=== PATIENT | female | born 1965 | race Caucasian/White ===

== ENCOUNTER 2016-07-23 17:43 | Emergency (ER) | payer OTHER ==
[~2016-07-23] VITALS: Ht 157.5 cm; Wt 59.0 kg
[2016-07-23 17:50] VITALS: BP 125/89
[2016-07-23] MEDS ORDERED: KETOROLAC TROMETHAMINE INJ 60 MG/2 ML VIAL IM ONE ×2 (18:00)
[2016-07-23] MEDS ORDERED: ONDANSETRON 4 MG TAB.RAPDIS SL ONE (18:00)
[2016-07-23] MEDS ORDERED: ONDANSETRON 4 MG TAB.RAPDIS ONE (18:01)
== END 2016-07-23 20:05 | disposition home or self-care (01) ==
LOC: ER 17:47
DX: S29.011A Strain of muscle and tendon of front wall of thorax, initial encounter (principal); Z59.0 Homelessness; F10.129 Alcohol abuse with intoxication, unspecified; X58.XXXA Exposure to other specified factors, initial encounter; Y93.89 Activity, other specified; Y92.89 Other specified places as the place of occurrence of the external cause; Y99.8 Other external cause status
CPT/HCPCS: 71100; 73030; 96372; 99284; A4606; J1885; Q0162; Z7610

== ENCOUNTER 2020-02-25 02:15 | Emergency (ER) | payer MEDICARE, OTHER ==
[~2020-02-25] VITALS: Ht 157.5 cm; Wt 63.5 kg
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
--- NOTE | 2020-02-25 02:51 | NUR ---
TENNIS BALL COVER CEMENTER AT BEDSIDE. URINE SENT TO LAB.
[2020-02-25 03:24] LABS: ALBUMIN 3.3 g/dL (3.4-5.0); BILIRUBIN,DIRECT 0.1 mg/dL (0.0-0.2); BILIRUBIN,TOTAL 0.1 mg/dL (0.2-1.0); CALCIUM, SERUM 8.6 mg/dL (8.5-10.1); POTASSIUM 3.2 mmol/L (3.5-5.1); TOTAL PROTEIN, SERUM 6.8 g/dL (6.4-8.2)
[2020-02-25 03:25] LABS: BASOPHILS % (AUTO) 0.5 % (0.0-2.0); EOSINOPHILS % (AUTO) 2.7 % (0.0-6.0); HEMATOCRIT 37 % (33-45); HEMOGLOBIN 12.4 g/dL (11.5-14.8); LYMPHOCYTES # (AUTO) 4.3 /CMM (0.8-4.8); LYMPHOCYTES % (AUTO) 55.8 % (20.0-44.0); MEAN CORPUSCULAR HGB CONC 33 g/dl (31.0-36.0); MEAN CORPUSCULAR VOLUME 96 fL (82-100); MONOCYTES # (AUTO) 0.5 /CMM (0.1-1.30); MONOCYTES % (AUTO) 7.1 % (2.0-12.0); NEUTROPHILS # (AUTO) 2.6 /CMM (1.8-8.9); NEUTROPHILS % (AUTO) 33.9 % (43.0-81.0); PLATELET COUNT (AUTO) 351 /CMM (150-450); RED BLOOD CELL COUNT(AUTO) 3.87 MIL/uL (4.0-5.2); WHITE BLOOD COUNT (AUTO) 7.7 K/uL (4.3-11.0)
[2020-02-25 03:34] LABS: APPEARANCE,URINE CLEAR (CLEAR); BILIRUBIN,URINE NEGATIVE (NEGATIVE); BLOOD, URINE SMALL Ery/uL (NEGATIVE); COLOR,URINE YELLOW (YELLOW); KETONES,URINE NEGATIVE (NEGATIVE); LEUKOCYTE ESTERASE ,URINE NEGATIVE (NEGATIVE); NITRITE, URINE NEGATIVE (NEGATIVE); PROTEIN,URINE NEGATIVE (NEGATIVE); UGLUCOSE NEGATIVE (NEGATIVE); UROBILINOGEN,URINE 0.2 EU/dL (0.2)
--- NOTE | 2020-02-25 03:46 | NUR ---
PT PROVIDED WITH FOOD.
--- NOTE | 2020-02-25 04:01 | NUR ---
Patient is resting comfortably in bed. Easily aroused. VSS.
--- NOTE | 2020-02-25 05:50 | NUR ---
CLINICAL FAXED TO [facility] FOR VOLUNTARY PSYCH ADMISSION.
--- NOTE | 2020-02-25 06:23 | NUR ---
CLINICAL UNDER REVIEW PER LEELA AT [facility] [place] INTAKE.
--- NOTE | 2020-02-25 07:01 | NUR ---
PT ACCEPTED AT [facility] RYAN CRUZ ACCEPTING MD DOBSON PHONE NUMBER FOR REPORT CJ INTAKE REQUESTING TO CALL FOR REPORT AFTER 0900AM
[2020-02-25 07:05] VITALS: BP 105/71
--- NOTE | 2020-02-25 08:18 | NUR ---
Per [facility] ambulance eta for transport to [facility] is 0012
--- NOTE | 2020-02-25 10:30 | NUR ---
REPORT GIVEN TO SENIOR IT ASSISTANT. PATIENT A/OX4, BREAHTING EVEN AND UNLABORED, IN STABLE CONDITION. SEEN AND REASSED BY DR. ZUÑIGA. PATIENT TRANSFERRED TO [facility].
== END 2020-02-25 11:15 ==
LOC: ER 02:22
DX: R45.851 Suicidal ideations (principal); R45.1 Restlessness and agitation; Z90.89 Acquired absence of other organs; Z98.890 Other specified postprocedural states
CPT/HCPCS: 36415; 80048; 80076; 80305; 80307; 80329; 81001; 85025; 99285; G0480; 81000-TC

== ENCOUNTER 2020-04-02 09:29 | Inpatient (IN) | payer MEDICARE, OTHER ==
[~2020-04-02] VITALS: Ht 157.5 cm; Wt 59.0 kg
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
[2020-04-02] MEDS ORDERED: ONDANSETRON HCL/PF 4 MG/2 ML VIAL ONE (09:58)
[2020-04-02] MEDS ORDERED: ONDANSETRON HCL/PF 4 MG/2 ML VIAL IV ONE (10:00)
[2020-04-02] MEDS ORDERED: IV NS 0.9% 1,000 ML BAG IV ONE (10:00)
[2020-04-02 10:15] LABS: BASOPHILS # (AUTO) 0.1 /CMM (0.0-0.2); BASOPHILS % (AUTO) 0.4 % (0.0-2.0); EOSINOPHILS % (AUTO) 0.1 % (0.0-6.0); HEMATOCRIT 42 % (33-45); HEMOGLOBIN 13.8 g/dL (11.5-14.8); LYMPHOCYTES # (AUTO) 1.6 /CMM (0.8-4.8); LYMPHOCYTES % (AUTO) 9.7 % (20.0-44.0); MEAN CORPUSCULAR HGB CONC 33 g/dl (31.0-36.0); MEAN CORPUSCULAR VOLUME 97 fL (82-100); MONOCYTES % (AUTO) 5.9 % (2.0-12.0); NEUTROPHILS # (AUTO) 13.6 /CMM (1.8-8.9); NEUTROPHILS % (AUTO) 83.9 % (43.0-81.0); PLATELET COUNT (AUTO) 330 /CMM (150-450); RED BLOOD CELL COUNT(AUTO) 4.29 MIL/uL (4.0-5.2); WHITE BLOOD COUNT (AUTO) 16.2 K/uL (4.3-11.0)
[2020-04-02 10:21] LABS: CALCIUM, SERUM 8.9 mg/dL (8.5-10.1); CARBON DIOXIDE 23 mmol/L (21-32); CHLORIDE 97 mmol/L (98-107); CREATININE 1.2 mg/dL (0.6-1.3); GLUCOSE 105 mg/dL (74-106); POTASSIUM 3.7 mmol/L (3.5-5.1); SODIUM SERUM 131 mmol/L (136-145); UREA NITROGEN, BLOOD 13 mg/dL (7-18)
[2020-04-02 10:26] LABS: ALANINE AMINOTRANSFERASE 22 U/L (12-78); ALBUMIN 3.4 g/dL (3.4-5.0); ALKALINE PHOSPHATASE 82 U/L (46-116); ASPARTATE AMINOTRANSFERASE 12 U/L (15-37); BILIRUBIN,DIRECT 0.1 mg/dL (0.0-0.2); BILIRUBIN,TOTAL 0.4 mg/dL (0.2-1.0); LIPASE 37 U/L (73-393); TOTAL PROTEIN, SERUM 7.3 g/dL (6.4-8.2)
--- NOTE | 2020-04-02 10:38 | NUR ---
COVID SWAB DONE SENT TO LAB
[2020-04-02] MEDS ORDERED: MORPHINE SULFATE INJ 4 MG/ML DISP.SYRIN ONE (10:56)
[2020-04-02] MEDS ORDERED: METOCLOPRAMIDE HCL 10 MG/2 ML VIAL ONE (10:57)
[2020-04-02] MEDS ORDERED: METOCLOPRAMIDE HCL 10 MG/2 ML VIAL IV ONE (11:00)
[2020-04-02] MEDS ORDERED: MORPHINE SULFATE INJ 2 MG/ML DISP.SYRIN IV ONE (11:00)
--- NOTE | 2020-04-02 11:20 | NUR ---
COVID RESULT: NEGATIVE
--- NOTE | 2020-04-02 13:31 | NUR ---
PT ASLEEP, EASILY AWAKEN BY VERBAL STIMULI. DENIES CP, SOB, DIZZINESS, N/V/D AT THIS TIME. WILL CONT TO MONITOR.
[2020-04-02 13:55] LABS: ALCOHOL, BLOOD < 3 mg/dL (0-0)
[2020-04-02 13:56] LABS: ACETAMINOPHEN 0 ug/ml (10-30)
--- NOTE | 2020-04-02 15:05 | NUR ---
PT ASLEEP, EASILY AWAKEN BY VERBAL STIMULI. DENIES CP, SOB, DIZZINESS, N/V/D AT THIS TIME. WILL CONT TO MONITOR.
--- NOTE | 2020-04-02 16:51 | NUR ---
ALENA faxed clinicals to [facility] at the request of ED KAYLA Meehan.
[2020-04-02] MEDS ORDERED: QUET200T PO ×2 (16:56→21:02)
[2020-04-02] MEDS ORDERED: DIVA-78 PO (16:56)
[2020-04-02] MEDS ORDERED: QUET300T2 PO (16:56)
[2020-04-02] MEDS ORDERED: HYDR50CA5 PO (16:56)
--- NOTE | 2020-04-02 17:24 | NUR ---
MOVE SHEET SUBMITTED AND CALLED FOR GPS BED.
--- NOTE | 2020-04-02 19:49 | NUR ---
IV removed. Catheter intact and site benign. Pressure and 4x4 applied to site. No bleeding noted.
--- NOTE | 2020-04-02 19:49 | NUR ---
REPORT GIVEN TO KAYLA ANDERSON FOR [facility].
--- NOTE | 2020-04-02 20:05 | NUR ---
GPS ADMISSION NOTE: RECEIVED PT FROM ER. PT. ARRIVED AT 1999 VIA GURNEY WITH ER STAFF. PT ADMITTED ON A 5150 HOLD FOR DTS. PER HOLD PT FEELING DEPRESSED AND SUICIDAL WITH A PLAN TO WALK INTO TRAFFIC, NON COMPLIANT WITH MEDICATION AND TREATMENT, UNABLE TO CONTRACT FOR SAFETY. THE HOLD WAS REVIEWED AND DOCUMENTATION OF HOLD APPEARS TO REFLECT PATIENT. UPON FACE TO FACE ASSESSMENT PT. IS NOTED TO BEING A/O X4, DISHEVELED, DEPRESSED, FLAT AFFECT, COOPERATIVE. PT IS CURRENTLY SLEEPING IN BED WITH NO S/S OF DISTRESS, SOB. PT SIGNED PAPERWORK. PT WAS ADVISED OF HOLD AND GIVEN PATIENT RIGHTS HANDBOOK. UNDER PSYCHIATRIC CARE OF DEMARCUS AND MEDICAL CARE OF CORAL. BELONGINGS WERE INVENTORIED AND CHECKED FOR CONTRABAND. ALL CONTRABAND REMOVED AND STORED IN HALLWAY LOCKER. SKIN ASSESSMENT COMPLETED.EDUCATED ON PATIENT CALL LIGHT. SIDE RAILS UP 2 , LOCKED AND LOW POSITION. WILL CONTINUE TO MONITOR.
[2020-04-02] MEDS ORDERED: MAG HYDROX/AL HYDROX/SIMETH 30 ML UDC PO PRN (20:30)
[2020-04-02] MEDS ORDERED: ACETAMINOPHEN 325 MG TABLET PO PRN (20:30)
[2020-04-02] MEDS ORDERED: TEMAZEPAM 7.5 MG CAPSULE PO PRN (20:30)
[2020-04-02] MEDS ORDERED: MAGNESIUM HYDROXIDE 30 ML UDC PO PRN (20:30)
[2020-04-02] MEDS ORDERED: LORAZEPAM 0.5 MG TABLET PO PRN (20:30)
[2020-04-02 20:35] VITALS: BP 107/62
[2020-04-02] MEDS ORDERED: BLOOD SUGAR DIAGNOSTIC 1 EACH STRIP IN ONE (21:00)
[2020-04-02] MEDS ORDERED: QUET100T PO (21:01)
[2020-04-02] MEDS: DIVALPROEX SODIUM 500 MG TABLET.DR PO SCH (21:30)
[2020-04-02] MEDS: QUETIAPINE FUMARATE 100 MG TABLET PO SCH (22:00)
--- NOTE | 2020-04-02 22:16 | NUR ---
GPS RN NOTE: MEDICATION REFUSAL PT. REFUSED SCHEDULED NIGHT MEDS DEPAKOTE 500 MG AND SEROQUEL 300 MG. PT. STATES "I'LL TAKE THEM TOMORROW INSTEAD." EXPLAINED RISKS AND BENEFITS. OFFERED 3 X AND STILL REFUSED. WILL CONTINUE TO MONITOR.
[2020-04-02 22:58] VITALS: BP 107/62
[2020-04-03 08:00] VITALS: BP 105/51
[2020-04-03 08:37] LABS: APPEARANCE,URINE CLEAR (CLEAR); BILIRUBIN,URINE NEGATIVE (NEGATIVE); BLOOD, URINE LARGE Ery/uL (NEGATIVE); COLOR,URINE YELLOW (YELLOW); LEUKOCYTE ESTERASE ,URINE TRACE (NEGATIVE); NITRITE, URINE NEGATIVE (NEGATIVE); PROTEIN,URINE NEGATIVE (NEGATIVE); UGLUCOSE NEGATIVE (NEGATIVE); UROBILINOGEN,URINE 0.2 EU/dL (0.2)
[2020-04-03] MEDS: DIVALPROEX SODIUM 500 MG TABLET.DR PO SCH ×2 (08:51→21:30)
[2020-04-03] MEDS: QUETIAPINE FUMARATE 100 MG TABLET PO SCH ×2 (08:51→21:32)
[2020-04-03] MEDS: NICOTINE PATCH (21MG) 21 MG PATCH.TD24 TD SCH (08:51)
[2020-04-03 08:57] LABS: BACTERIA,URINE Rare /HPF (None Seen); SQUAMOUS EPITHELIAL CELL,UR Few /HPF (None Seen)
--- NOTE | 2020-04-03 11:00 | NUR ---
GPS RN NOTE: Patient states she has been having diarrhea since last night, told patient to not flush the toilet for us to assess, patient says "I am too embarassed for you guys to see." Explained the risks and benefits of assessing stool, patient verbalizes understanding. Will continue to monitor.
--- NOTE | 2020-04-03 12:00 | NUR ---
GPS RN NOTE: Patient reports allergies: penicillin and fish. Noted on chart.
--- NOTE | 2020-04-03 15:51 | NUR ---
GPS RN NOTE: Patient's BP noted at 77/48 HR 57. Patient is A&O x 3, reports dizziness and diarrhea since last night, per slot shift manager nurse, admitting MD aware. Paged Rowdy Wade NP from [facility]. Patient placed in trendelenburg position and encouraged increase in PO fluid intake. Will continue to monitor closely
[2020-04-03 16:00] VITALS: BP 78/52
[2020-04-03] MEDS ORDERED: IV LR 500 ML IV ONE (16:30)
--- NOTE | 2020-04-03 17:10 | NUR ---
GPS RN NOTE: IV inserted by admission discharge rn for IV fluids, site noted on R FA #24 gauge, patent and intact, and flushing well.
[2020-04-03] MEDS ORDERED: IV LR 1000 ML 1,000 ML IV ONE (17:30)
--- NOTE | 2020-04-03 17:30 | NUR ---
GPS RN NOTE: STARTED IV LR 1 LITER BOLUS, patient tolerating fluids well. MEDICAL MASSAGE THERAPIST present for 1:1. Will continue to monitor.
[2020-04-03 20:20] VITALS: BP 80/51
--- NOTE | 2020-04-03 21:34 | NUR ---
GPS RN NOTE: MEDICATION REFUSAL PT. REFUSED SCHEDULED SEROQUEL 300 MG PO. STATES" THE SEROQUEL IS GIVING ME MUSCLE SPAMS." EXPLAINED RISKS AND BENEFITS. OFFERED 3X AND STILL REFUSED. WILL CONTINUE TO MONITOR.
[2020-04-04 07:04] LABS: BASOPHILS % (AUTO) 0.1 % (0.0-2.0); EOSINOPHILS % (AUTO) 3.5 % (0.0-6.0); HEMATOCRIT 36 % (33-45); HEMOGLOBIN 11.7 g/dL (11.5-14.8); LYMPHOCYTES # (AUTO) 2.5 /CMM (0.8-4.8); LYMPHOCYTES % (AUTO) 30.5 % (20.0-44.0); MEAN CORPUSCULAR HGB CONC 33 g/dl (31.0-36.0); MEAN CORPUSCULAR VOLUME 96 fL (82-100); MONOCYTES # (AUTO) 0.5 /CMM (0.1-1.30); MONOCYTES % (AUTO) 6.1 % (2.0-12.0); NEUTROPHILS # (AUTO) 4.8 /CMM (1.8-8.9); NEUTROPHILS % (AUTO) 59.8 % (43.0-81.0); PLATELET COUNT (AUTO) 294 /CMM (150-450); RED BLOOD CELL COUNT(AUTO) 3.69 MIL/uL (4.0-5.2); WHITE BLOOD COUNT (AUTO) 8.1 K/uL (4.3-11.0)
[2020-04-04 07:31] LABS: ALBUMIN 2.4 g/dL (3.4-5.0); BILIRUBIN,TOTAL 0.1 mg/dL (0.2-1.0); CALCIUM, SERUM 8.3 mg/dL (8.5-10.1); CREATININE 0.7 mg/dL (0.6-1.3); MAGNESIUM 1.9 mg/dL (1.8-2.4); PHOSPHORUS 3.1 mg/dL (2.5-4.9); POTASSIUM 3.5 mmol/L (3.5-5.1); TOTAL PROTEIN, SERUM 5.8 g/dL (6.4-8.2)
[2020-04-04 08:00] VITALS: BP 94/60
[2020-04-04] MEDS: NICOTINE PATCH (21MG) 21 MG PATCH.TD24 TD SCH (08:41)
[2020-04-04] MEDS: DIVALPROEX SODIUM 500 MG TABLET.DR PO SCH (08:41)
[2020-04-04] MEDS: QUETIAPINE FUMARATE 100 MG TABLET PO SCH (08:42)
--- NOTE | 2020-04-04 10:41 | NUR ---
GPS RN NOTE: PER DR DEMARCUS Montejo ORDER DC SEROQUEL 200 MG PO Q AM, DC SEROQUEL 300 MG PO HS ADD ABILIFY 10 MG PO HS ORDER PLACED AND CARED OUT. Addendum: 04/04/20 at 1051 by LISA SHAW RN ABILIFY 5 MG HS NOT 10 MG.
--- NOTE | 2020-04-04 15:35 | NUR ---
GPS RN NOTE: PT HAD TWO LOOSE STOOLS MD JAIN
--- NOTE | 2020-04-04 15:52 | NUR ---
gps rjn Addendum: 04/04/20 at 1552 by LISA SHAW RN gpsn Addendum: 04/04/20 at 1553 by LISA SHAW RN GPS RN NOTE: PATIENT FEELING ANXIOUS, SAD , CRYING ATIVAN 0.5 MG PO PRN GIVEN PER ORDER WILL CONTINUE MONITORING.
[2020-04-04 16:00] VITALS: BP 99/63
--- NOTE | 2020-04-04 16:45 | NUR ---
GPS RN NOTE: CHRISTIANO SENIOR NOTIFIED PT POSITIVE C-DIFF COLITIS NEW ORDER TO TRANSFER PT TO MS.
[2020-04-04] MEDS ORDERED: BENZTROPINE MESYLATE (1 MG) 1 MG TABLET PO SCH (17:00)
--- NOTE | 2020-04-04 17:52 | NUR ---
GPS RN NOTE: DR TRACY NOTIFIED REGARDING TRANSFER TO [place], ORDER TO CONTINUE HOLD DC ABILIFY 5 MG PO HS .PT TRANSFER TO ROOM 323 1
[2020-04-04] MEDS ORDERED: MAG30ORA PO (18:17)
[2020-04-04] MEDS ORDERED: TEMA7.5C12 PO (18:17)
[2020-04-04] MEDS ORDERED: ACET-868 PO (18:17)
[2020-04-04] MEDS ORDERED: MAGN400O6 PO (18:17)
[2020-04-04] MEDS ORDERED: DIVA-78 PO (18:17)
[2020-04-04] MEDS ORDERED: LORA-259 PO (18:17)
[2020-04-04] MEDS ORDERED: NICO-676 TD (18:17)
--- NOTE | 2020-04-04 19:16 | NUR ---
DISCHARGE NOTE: PT DISCHARGE TO MS ROOM 323 1 REPORT GIVEN TO JUNAID GARZA. PT IN STABLE CONDITION NO S/S DISTRESS NOTED , AMBULATORY A/O X4, DENIES SI/HI, COMPLIANT WITH MEDICATIONS . CONTINUE HOLD, PT SKIN INTACT, VSS. BELONGING AND BELONGING LIST TRANSFER WITH PT.
[2020-04-04] MEDS ORDERED: ARIPIPRAZOLE 5 MG TABLET PO SCH (22:00)
[2020-04-06] MEDS ORDERED: VANC125C11 PO (15:34)
== END 2020-04-04 19:12 | disposition short-term general hospital (02) | DRG 885 ==
LOC: ER 09:42 → GPS 19:42
PROVIDERS: ADMIT Psychiatry & Neurology Psychiatry; ATTEND Nurse Practitioner Acute Care
DX: F31.60 Bipolar disorder, current episode mixed, unspecified (principal); A04.72 Enterocolitis due to Clostridium difficile, not specified as recurrent; E87.1 Hypo-osmolality and hyponatremia; K42.9 Umbilical hernia without obstruction or gangrene; Z79.899 Other long term (current) drug therapy; Z59.0 Homelessness; Z98.890 Other specified postprocedural states; F29 Unspecified psychosis not due to a substance or known physiological condition; F17.200 Nicotine dependence, unspecified, uncomplicated; D72.829 Elevated white blood cell count, unspecified; F15.90 Other stimulant use, unspecified, uncomplicated; F12.10 Cannabis abuse, uncomplicated; E86.1 Hypovolemia
CPT/HCPCS: 36415; 71045-TC; 80048-TC; 80053-TC; 80061-TC; 80076-TC; 81000-TC; 82962-TC; 83690-TC; 83735-TC; 84100-TC; 84484-TC; 85025-TC; 87081-TC; 87086-TC; C9803; G0480; J2270; J2405; J2765; J7030; J7120

== ENCOUNTER 2020-04-04 17:47 | Inpatient (IN) | payer MEDICARE, OTHER ==
[~2020-04-04 17:47] MED LIST: DIVA-78 PO; HYDR50CA5 PO; QUET100T PO; QUET200T PO; QUET300T2 PO
[2020-04-04] MEDS ORDERED: TEMA7.5C12 PO (18:17)
[2020-04-04] MEDS ORDERED: ACET-868 PO (18:17)
[2020-04-04] MEDS ORDERED: NICO-676 TD (18:17)
[2020-04-04] MEDS ORDERED: MAGN400O6 PO (18:17)
[2020-04-04] MEDS ORDERED: DIVA-78 PO (18:17)
[2020-04-04] MEDS ORDERED: MAG30ORA PO (18:17)
[2020-04-04] MEDS ORDERED: LORA-259 PO (18:17)
[2020-04-04] MEDS ORDERED: HYDROCODONE/APAP 5/325MG TABLET PO PRN (18:30)
[2020-04-04] MEDS ORDERED: Z GUARD REMEDY 2 OZ OINT TP PRN (18:30)
[2020-04-04] MEDS ORDERED: ONDANSETRON HCL/PF 4 MG/2 ML VIAL IVP PRN (18:30)
[2020-04-04] MEDS ORDERED: IV D5/0.45 NACL 1,000 ML IV PRN (18:30)
[2020-04-04] MEDS ORDERED: MAG HYDROX/AL HYDROX/SIMETH 30 ML UDC PO PRN (18:30)
[2020-04-04] MEDS ORDERED: ZOLPIDEM TARTRATE 5 MG TABLET PO PRN (18:30)
[2020-04-04] MEDS ORDERED: MAGNESIUM HYDROXIDE 30 ML UDC PO PRN (18:30)
[2020-04-04] MEDS ORDERED: ACETAMINOPHEN 325 MG TABLET PO PRN (18:30)
--- NOTE | 2020-04-04 19:15 | NUR ---
RN OPENING NOTE PATIENT ADMIT TO MEDSURG UNIT FROM GPS WITH C-DIFF DIAGNOSIS,CONTACT ISOLATION,WITH SITTER, ONE TO ONE,ALERT ORIENTED X4 VERBALLY RESPONSIVE ABLE TO MAKE NEEDS KNOWN,ON ROOM AIR O2:97% IV SITE IS ON RIGHT FOREARM,INTACT PATENT AMBULATORY WITH ASSIST,IMPLEMENT SAFETY MEASURE,BED LOCKED IN LOW POSITON CALL LIGHT WITHIN REACH,CONTINUE TO MONITOR.
[2020-04-04 20:00] VITALS: BP 90/60
[2020-04-04 20:26] VITALS: BP 90/80
[2020-04-04] MEDS ORDERED: IV NS 0.9% 1,000 ML IV PRN (21:00)
[2020-04-04] MEDS ORDERED: IV NS 0.9% 500 ML IV ONE (21:00)
[2020-04-04 21:06] VITALS: BP 97/64
--- NOTE | 2020-04-04 23:30 | NUR ---
RN NOTE PATIENT REMAINS ALERT ORIENTED X4 VERBALLY RESPONSIVE ON ROOM AIR,O2:99% WITH SITTER,ENDORSE NEXT COMING SHIFT FOR CONTINUATION OF CARE.
--- NOTE | 2020-04-04 23:30 | NUR ---
Received report from KAYLA Javier for continuity of care.
--- NOTE | 2020-04-04 23:30 | NUR ---
Patient in bed sleeping comfortably. Patient breathing well on room air. On 1:1 sitter. No SOB or acute respiratory distress noted. Noted IV access on right forearm, 22 gauge, dressing dry and intact, no SOB or acute respiratory distress noted. Safety precaution in place, bed is in the lowest level, bed is locked, alarm i son, side rails x2 are up, and call light is within reach. Will continue to monitor.
[2020-04-04] MEDS: VANCOMYCIN HCL 125 MG/2.5 ML ORAL.SUSP PO SCH (23:41)
[2020-04-05] VITALS: BP 98/59
[2020-04-05 04:00] VITALS: BP 98/67
[2020-04-05] MEDS: VANCOMYCIN HCL 125 MG/2.5 ML ORAL.SUSP PO SCH ×3 (05:32→17:09)
[2020-04-05 07:06] LABS: BASOPHILS % (AUTO) 0.1 % (0.0-2.0); EOSINOPHILS % (AUTO) 2.8 % (0.0-6.0); HEMATOCRIT 36 % (33-45); HEMOGLOBIN 11.7 g/dL (11.5-14.8); LYMPHOCYTES # (AUTO) 1.7 /CMM (0.8-4.8); LYMPHOCYTES % (AUTO) 23.2 % (20.0-44.0); MEAN CORPUSCULAR HGB CONC 33 g/dl (31.0-36.0); MEAN CORPUSCULAR VOLUME 97 fL (82-100); MONOCYTES # (AUTO) 0.8 /CMM (0.1-1.30); MONOCYTES % (AUTO) 10.5 % (2.0-12.0); NEUTROPHILS # (AUTO) 4.7 /CMM (1.8-8.9); NEUTROPHILS % (AUTO) 63.4 % (43.0-81.0); PLATELET COUNT (AUTO) 295 /CMM (150-450); WHITE BLOOD COUNT (AUTO) 7.5 K/uL (4.3-11.0)
--- NOTE | 2020-04-05 07:15 | NUR ---
Patient in bed sleeping comfortably. Patient breathing well. No SOB or acute respiratory distress noted. Safety precaution maintained, bed in lowest level, side rails x2 are up, and call light is within reach. Will endorse to next shift.
--- NOTE | 2020-04-05 07:42 | NUR ---
MS/RN OPENING NOTE RECEIVED PATIENT FROM OUTREACH ANALYST. PATIENT LAYING IN BED, NO ACUTE DISTRESS NOTED. PATIENT ON ROOM AIR, NO SOB OF NOTED. PATIENT HEAD OF THE BED ELEVATED. BED LOCKED AND IN LOWEST POSITION, CALL LIGHT LIGHT WITHIN REACH. SPOUT TENDER 1 TO 1 PRESENT. WILL CONTINUE TO MONITOR AND ENSURE SAFETY.
[2020-04-05 07:55] LABS: CALCIUM, SERUM 8.4 mg/dL (8.5-10.1); CREATININE 0.6 mg/dL (0.6-1.3); MAGNESIUM 1.9 mg/dL (1.8-2.4); PHOSPHORUS 3.7 mg/dL (2.5-4.9); POTASSIUM 3.5 mmol/L (3.5-5.1)
[2020-04-05 08:00] VITALS: BP 93/57
--- NOTE | 2020-04-05 08:40 | NUR ---
MS/RN S/B DR. TRACY TELEPHONE ORDER GIVEN TO DISCONTINUE PSYCHIATRIC HOLD.
[2020-04-05] MEDS: PANTOPRAZOLE 40 MG VIAL IV SCH (08:44)
[2020-04-05] MEDS: NICOTINE PATCH (21MG) 21 MG PATCH.TD24 TD SCH (15:13)
--- NOTE | 2020-04-05 15:15 | NUR ---
NICOTINE PATCH PLACED ON LEFT DELTOID
[2020-04-05 16:00] VITALS: BP 109/64
--- NOTE | 2020-04-05 18:36 | NUR ---
MS/RN CLOSING NOTE PATIENT REMAINS IN STABLE CONDITION PATIENT A/O X4. V/S WITHIN NORMAL RANGE. NO ACUTE DISTRESS NOTED. PATIENT O2 SAT 99% ON RA, TOLERATING WELL. RIGHT FA #22 INTACT AND PATENT. ALL NEEDS MET DURING THE DAY. SAFETY PRECAUTIONS IN PLACE. BED IN LOWEST POSITION AND LOCKED. CALL LIGHT WITHIN REACH. WILL ENDORSE TO APPLICATION INFRASTRUCTURE ENGINEER NURSE.
[2020-04-05 20:00] VITALS: BP 101/60
[2020-04-05] MEDS ORDERED: LORAZEPAM 1 MG TABLET PO PRN (21:00)
[2020-04-05] MEDS: DIVALPROEX SODIUM 500 MG TABLET.DR PO SCH (21:23)
--- NOTE | 2020-04-05 21:30 | NUR ---
items from safe retrieved and returrned to bedside. pt informed that if she wants she can put things back in safe. pt states "no i will keep my stuff here. i need my phone and cards I have to send some things to [facility] in the morning."
[2020-04-06] MEDS: VANCOMYCIN HCL 125 MG/2.5 ML ORAL.SUSP PO SCH ×4 (00:19→17:30)
[2020-04-06 06:30] LABS: BASOPHILS % (AUTO) 0.4 % (0.0-2.0); EOSINOPHILS % (AUTO) 4.8 % (0.0-6.0); HEMATOCRIT 36 % (33-45); HEMOGLOBIN 11.9 g/dL (11.5-14.8); LYMPHOCYTES # (AUTO) 2.8 /CMM (0.8-4.8); LYMPHOCYTES % (AUTO) 48.9 % (20.0-44.0); MEAN CORPUSCULAR HGB CONC 33 g/dl (31.0-36.0); MEAN CORPUSCULAR VOLUME 97 fL (82-100); MONOCYTES # (AUTO) 0.5 /CMM (0.1-1.30); MONOCYTES % (AUTO) 8.7 % (2.0-12.0); NEUTROPHILS # (AUTO) 2.1 /CMM (1.8-8.9); NEUTROPHILS % (AUTO) 37.2 % (43.0-81.0); PLATELET COUNT (AUTO) 310 /CMM (150-450); RED BLOOD CELL COUNT(AUTO) 3.72 MIL/uL (4.0-5.2); WHITE BLOOD COUNT (AUTO) 5.6 K/uL (4.3-11.0)
[2020-04-06 07:01] LABS: CALCIUM, SERUM 8.5 mg/dL (8.5-10.1); CREATININE 0.8 mg/dL (0.6-1.3); MAGNESIUM 1.9 mg/dL (1.8-2.4); POTASSIUM 3.3 mmol/L (3.5-5.1)
--- NOTE | 2020-04-06 07:19 | NUR ---
dr. walters called. updated on patient condition. no new orders recieved.
--- NOTE | 2020-04-06 07:36 | NUR ---
MS/RN OPENING NOTES RECEIVED PATIENT ON BED. AWAKE, ALERT AND ORIENTED X4. PATIENT DENIES PAIN AT THIS TIME. PATIENT IN NO APPARENT RESPIRATORY DISTRESS NOTED. WILL CONTINUE TO MONITOR.
[2020-04-06 08:00] VITALS: BP 106/72
[2020-04-06] MEDS: DIVALPROEX SODIUM 500 MG TABLET.DR PO SCH (08:36)
[2020-04-06] MEDS: PANTOPRAZOLE 40 MG VIAL IV SCH (08:36)
[2020-04-06] MEDS: NICOTINE PATCH (21MG) 21 MG PATCH.TD24 TD SCH (08:37)
[2020-04-06] MEDS ORDERED: POTASSIUM CHLORIDE 20 MEQ POWDER PACKET PO SCH (11:00)
[2020-04-06] MEDS ORDERED: VANC125C11 PO (15:34)
[2020-04-06 16:00] VITALS: BP 104/78
--- NOTE | 2020-04-06 18:54 | NUR ---
MS/RN NOTES PATIENT IS ALERT AND ORIENTED X 4. IN ROOM AIR SATURATION IS AT 98%. RESPIRATION REGULAR AND UNLABORED. PATIENT DENIES PAIN AT THIS TIME. PATIENT IN NO APPARENT RESPIRATORY DISTRESS NOTED. SEEN AND EXAMINED BY MD WITH ORDERS MADE AND CARRIED OUT. PATIENT WAS GIVEN DISCHARGED INSTRUCTIONS AND PATIENT VERBALIZED UNDERSTANDING. THE PATIENT LEFT IN THE HOSPITAL IN MEDICALLY STABLE CONDITION AT 1850. MANAGER OF INTERNAL AUDIT BY 2 EMT VIA AMBULANCE.
== END 2020-04-06 18:41 | DRG 372 ==
LOC: MED 17:47
PROVIDERS: ADMIT Student in an Organized Health Care Education/Training Program; ATTEND Nurse Practitioner Acute Care
DX: A04.72 Enterocolitis due to Clostridium difficile, not specified as recurrent (principal); E87.1 Hypo-osmolality and hyponatremia; E44.0 Moderate protein-calorie malnutrition; F17.200 Nicotine dependence, unspecified, uncomplicated; F31.9 Bipolar disorder, unspecified; Z59.0 Homelessness; F29 Unspecified psychosis not due to a substance or known physiological condition; E86.1 Hypovolemia; Z79.899 Other long term (current) drug therapy; Z88.0 Allergy status to penicillin; Z91.013 Allergy to seafood; K42.9 Umbilical hernia without obstruction or gangrene
CPT/HCPCS: 36415; 80048-TC; 83735-TC; 84100-TC; 85025-TC; C9113; G0378; J7030; J7040